=== PATIENT | male | born 1990 | race African-American/Black ===

== ENCOUNTER 2016-05-29 07:30 | Day surgery (SDC) | payer OTHER ==
[2016-05-29] MEDS ORDERED: ACETAMINOPHEN 1,000 MG/100 ML 100 ML IV ONE (08:21)
[2016-05-29] MEDS ORDERED: CELECOXIB 100 MG CAPSULE PO ONE (08:21)
[2016-05-29] MEDS ORDERED: ceFAZolin 2 GM/50 ML 50 ML IV ONE (08:22)
[2016-05-29] MEDS ORDERED: LACTATED RINGERS 1,000 ML IV ONE (08:24)
[2016-05-29] MEDS ORDERED: fentaNYL 250 MCG/5 ML VIAL IVP ONE (12:00)
[2016-05-29] MEDS ORDERED: ceFAZolin 2 GM/50 ML BAG IV ONE (12:00)
[2016-05-29] MEDS ORDERED: MIDAZOLAM 2 MG/2 ML VIAL IVP ONE (12:00)
[2016-05-29] MEDS ORDERED: HYDROmorphone 1 MG/ML SYRINGE IVP ONE (12:00)
[2016-05-29] MEDS ORDERED: BUPIVACAINE 0.5%-EPI 1:200000 PF 30 ML VIAL SUBQ ONE (12:00)
[2016-05-29] MEDS ORDERED: ONDANSETRON 4 MG/2 ML VIAL IVP ONE (12:00)
[2016-05-29] MEDS ORDERED: PROPOFOL 200 MG/20 ML VIAL IVP ONE (12:00)
[2016-05-29] MEDS ORDERED: LIDOCAINE-MPF 2% 5 ML VIAL IM ONE (12:00)
[2016-05-29] MEDS ORDERED: ACETAMINOPHEN 1,000 MG/100 ML VIAL IV ONE (12:00)
[2016-05-29] MEDS: fentaNYL 100 MCG/2 ML VIAL ONE ×4 (14:00→14:45)
[2016-05-29] MEDS ORDERED: oxyCOD/ACETAMIN 5 MG/325 MG TABLET PO ONE (15:38)
== END 2016-05-29 07:31 | disposition home or self-care (01) ==
PROC: 0SBC4ZZ Excision of Right Knee Joint, Percutaneous Endoscopic Approach (ICD-10-PCS; 2016-05-29)
PROC: 0SBC4ZZ Excision of Right Knee Joint, Percutaneous Endoscopic Approach (ICD-10-PCS; 2016-05-29)
PROC: 0MUN47Z Supplement Right Knee Bursa and Ligament with Autologous Tissue Substitute, Percutaneous Endoscopic Approach (ICD-10-PCS; principal; 2016-05-29 10:00)
DX: S83.411A Sprain of medial collateral ligament of right knee, initial encounter (principal); S83.211A Bucket-handle tear of medial meniscus, current injury, right knee, initial encounter; S83.511A Sprain of anterior cruciate ligament of right knee, initial encounter; W18.42XA Slipping, tripping and stumbling without falling due to stepping into hole or opening, initial encounter; Y92.137 Garden or yard on military base as the place of occurrence of the external cause; E66.9 Obesity, unspecified; Z68.32 Body mass index [BMI] 32.0-32.9, adult
CPT/HCPCS: 29880; 29888; 73560; A9270; C1713; J0131; J0690; J1170; J3010; J7120

== ENCOUNTER 2017-07-02 09:04 | Outpatient (CLI) | payer OTHER ==
--- NOTE | 2017-07-02 13:42 | MRI Report ---
EXAM: RIGHT KNEE MRI WITHOUT CONTRAST EXAM DATE: 07/02/2017 10:00 AM. CLINICAL HISTORY: Surgery May 2016. ACL reconstruction. MCL/LCL debridement. COMPARISON: MRI 01/23/2016. TECHNIQUE: Multiplanar, multisequence T1-weighted and fluid-sensitive sequences of the knee without c ontrast. Other: None. FINDINGS: Bones: ACL graft surgery is noted. There is fluid signal posterior to the screw in the tibial tunnel, apparent widening of the tunnel. There are no visible fractures or foci of marrow edema. There are s mall medial compartment osteophytes. Articular Cartilage: Minimal thinning of the hyaline cartilage of the medial compartment. Medial Meniscus: The free margin of the medial meniscus appears truncated, suggesting prior partial m edial meniscectomy. Lateral Meniscus: The lateral meniscus is intact. Cruciate Ligaments: The ACL graft is intact. The PCL appears normal. Collateral Ligaments: The medial collateral and lateral collateral ligamentous structures are intact. Tendons: The patellar tendon appears thickened, consistent with prior graft harvest. The quadriceps a nd popliteus tendons appear normal. Musculature: No edema or fatty atrophy. Other: There is a small joint effusion. No popliteal cyst. No loose bodies. The medial and lateral re tinacula are intact. The subcutaneous tissues and fat pads are unremarkable. IMPRESSION: 1. Probable cyst formation within the tibial tunnel which has widened. 2. Small joint effusion. 3. ACL graft is intact. 4. Prior partial medial meniscectomy. [facility] MUSCULOSKELET[facility]IOLOGY SECTION Referring Provider Line: [phone] SITE ID: [id number]
== END 2017-07-02 09:05 | disposition home or self-care (01) ==
LOC: DI 09:04
PROVIDERS: ATTEND Orthopaedic Surgery
DX: M25.561 Pain in right knee (principal); M25.461 Effusion, right knee

== ENCOUNTER 2018-01-02 17:10 | Emergency (ER) | payer OTHER ==
[2018-01-02 18:00] LABS: BASOPHILS # (AUTO) 0.1 10^3/uL (0.0-0.1); BASOPHILS % (AUTO) 1.3 %; EOSINOPHILS # (AUTO) 0.2 10^3/uL (0.0-0.7); EOSINOPHILS % (AUTO) 3.5 %; LYMPHOCYTES # (AUTO) 1.5 10^3/uL (1.5-3.5); LYMPHOCYTES % (AUTO) 23.8 %; MEAN CORPUSCULAR HEMOGLOBIN 32.3 pg (27.0-31.0); MEAN CORPUSCULAR HGB CONC 34.3 g/dL (32.0-36.0); MEAN CORPUSCULAR VOLUME 94.1 fL (80.0-94.0); MONOCYTES # (AUTO) 0.6 10^3/uL (0.0-1.0); MONOCYTES % (AUTO) 8.7 %; NEUTROPHILS # (AUTO) 4.1 10^3/uL (1.5-6.6); NEUTROPHILS % (AUTO) 62.7 %; PLT - PLATELET COUNT 236 10^3/uL (130-450); RED BLOOD COUNT 4.34 10^6/uL (4.70-6.10); RED CELL DISTRIBUTION WIDTH 12.1 % (12.0-15.0); WHITE BLOOD COUNT 6.5 x10^3/uL (4.8-10.8)
[2018-01-02 18:14] LABS: ALBUMIN 4.2 g/dL (3.2-5.5); ALBUMIN/GLOBULIN RATIO 1.4 (1.0-2.2); BILIRUBIN,TOTAL 0.9 mg/dL (0.2-1.0); CALCIUM 9.2 mg/dL (8.5-10.3); CREATININE 1.1 mg/dL (0.6-1.2); TOTAL PROTEIN 7.3 g/dL (6.7-8.2)
--- NOTE | 2018-01-02 18:59 | XRAY Report ---
Reason: chest pain Procedure Date: 01/02/2018 Accession Number: [id number] / [id number] Procedure: XR - Chest 1 View X-Ray CPT Code: 10307 FULL RESULT: EXAM: CHEST RADIOGRAPHY EXAM DATE: 01/02/2018 06:45 PM. CLINICAL HISTORY: Left side chest pain off and on for 3 weeks COMPARISON: None. TECHNIQUE: 1 view. FINDINGS: Lungs/Pleura: No focal opacities evident. No pleural effusion. No pneumothorax. Mediastinum: Within exam limitations, the cardiomediastinal contour is normal. IMPRESSION: No evidence of acute thoracic process [facility]
--- NOTE | 2018-01-02 19:03 | ED Physician Documentation ---
History of Present Illness - Stated complaint Stated Complaint: CHEST PX - Chief complaint Chief Complaint: Cardiac - History obtained from History obtained from: Patient - History of Present Illness Timing: Today Pain level max: 3 Pain level now: 3 Improved by: nothing Worsened by: nothing - Additonal information Additional information: Patient is a 27-year-old male who presents to the emergency department left- sided chest pain since approximately 10 AM this morning. Described as aching and squeezing. No dyspnea. No dyspnea on exertion. Nothing makes it better or worse. Has had intermittent symptoms similar to this for the past month. Has not seen his PCP for this. Does have a history of sleep apnea and states that sometimes he feels like he has trouble breathing when he is asleep. Review of Systems Ten Systems: 10 systems reviewed and negative Constitutional: denies: Fever, Chills Ears: denies: Ear pain Nose: denies: Rhinorrhea / runny nose, Congestion Throat: denies: Sore throat Cardiac: denies: Palpitations, Calf pain Respiratory: denies: Cough, Wheezing GI: denies: Abdominal Pain, Nausea, Vomiting, Diarrhea Skin: denies: Rash Musculoskeletal: denies: Neck pain, Back pain Neurologic: denies: Focal weakness, Numbness, Headache PD PAST MEDICAL HISTORY - Past Medical History Past Medical History: No Cardiovascular: None Respiratory: None Endocrine/Autoimmune: None GI: None : None HEENT: None Psych: None Musculoskeletal: Other Derm: None - Past Surgical History Past Surgical History: No General: Other - Present Medications Home Medications: Ambulatory Orders Medication Instructions Recorded Confirmed No Known Home Medications [No 04/23/16 05/29/16 Known Home Medications] - Allergies Allergies/Adverse Reactions: Allergies Allergy/AdvReac Type Severity Reaction Status Date / Time No Known Drug Allergies Allergy Verified 01/02/18 17:19 - Social History Does the pt smoke?: No Smoking Status: Never smoker Does the pt drink ETOH?: No Does the pt have substance abuse?: No - Immunizations Immunizations are current?: Yes - POLST Patient has POLST: No PD ED PE NORMAL - Vitals Vital signs reviewed: Yes - General General: Alert and oriented X 3, No acute distress - HEENT HEENT: PERRL, Moist mucous membranes - Neck Neck: Supple, no meningeal sign, No JVD, No bruit - Cardiac Cardiac: RRR, Strong equal pulses - Respiratory Respiratory: No respiratory distress, Clear bilaterally - Abdomen Abdomen: Soft, Non tender, Non distended - Back Back: No spinal TTP - Derm Derm: Normal color, Warm and dry, No rash - Extremities Extremities: No edema, No calf tenderness / cord - Neuro Neuro: Alert and oriented X 3 - Psych Psych: Normal mood, Normal affect Results - Vitals Vitals: Vital Signs - 24 hr 01/02/18 01/02/18 01/02/18 17:16 18:53 19:15 Temperature 36.2 C L 36.2 C L Heart Rate 75 72 70 Respiratory 20 12 14 Rate Blood Pressure 127/87 H 130/72 132/76 H O2 Saturation 99 99 99 Oxygen O2 Source Room air - EKG (time done) 1720 Rate: Rate (enter#) (64) Rhythm: NSR [place]: Normal Intervals: Normal [place] QRS: Normal Ischemia: Normal ST segments Computer interpretation: Agree with computer - Labs Labs: Laboratory Tests 01/02/18 01/02/18 01/02/18 17:53 17:53 17:53 WBC 6.5 RBC 4.34 L Hgb 14.0 Hct 40.9 L MCV 94.1 H MCH 32.3 H MCHC 34.3 RDW 12.1 Plt Count 236 MPV 9.0 Neut # (Auto) 4.1 Lymph # (Auto) 1.5 [place] # (Auto) 0.6 Eos # (Auto) 0.2 Baso # (Auto) 0.1 Absolute Nucleated RBC 0.01 Nucleated RBC % 0.1 D-Dimer Sodium 137 Potassium 3.8 Chloride 102 Carbon Dioxide 28 Anion Gap 7.0 BUN 20 Creatinine 1.1 Estimated GFR (MDRD) 97 Glucose 99 Calcium 9.2 Total Bilirubin 0.9 AST 39 ALT 58 Alkaline Phosphatase 62 Troponin I < 0.04 Total Protein 7.3 Albumin 4.2 Globulin 3.1 Albumin/Globulin Ratio 1.4 Lipase 41 01/02/18 17:53 WBC RBC Hgb Hct MCV MCH MCHC RDW Plt Count MPV Neut # (Auto) Lymph # (Auto) [place] # (Auto) Eos # (Auto) Baso # (Auto) Absolute Nucleated RBC Nucleated RBC % D-Dimer < 200.0 L Sodium Potassium Chloride Carbon Dioxide Anion Gap BUN Creatinine Estimated GFR (MDRD) Glucose Calcium Total Bilirubin AST ALT Alkaline Phosphatase Troponin I Total Protein Albumin Globulin Albumin/Globulin Ratio Lipase - Rads (name of study) cxr Radiology: Prelim report reviewed, EMP read contemporaneously, See rad report ( normal.) PD MEDICAL DECISION MAKING - ED course Complexity details: reviewed results, re-evaluated patient, considered differential (No ST elevation [place], no aortic dissection, no PE, no tension pneumothorax, no aortic aneurysm), d/w patient ED course: Patient is a 27-year-old male who presents with left-sided chest pain. Nonradiating. Normal EKG. Negative troponin after greater than 8 hours of symptoms. He actually has had intermittent symptoms over the past several weeks. His d-dimer is negative. No calf swelling or tenderness. Symptoms resolved while in the emergency department. We will continue supportive care and follow-up with his doctor. Patient counseled regarding signs and symptoms for which I believe and urgent re-evaluation would be necessary. Patient with good understanding of and agreement to plan and is comfortable going home at this time This document was made in part using voice recognition software. While efforts are made to proofread this document, sound alike and grammatical errors may occur. - Sepsis Event Vital Signs: Vital Signs - 24 hr 01/02/18 01/02/18 01/02/18 17:16 18:53 19:15 Temperature 36.2 C L 36.2 C L Heart Rate 75 72 70 Respiratory 20 12 14 Rate Blood Pressure 127/87 H 130/72 132/76 H O2 Saturation 99 99 99 Oxygen O2 Source Room air Departure - Departure Disposition: 01 Home, Self Care Clinical Impression: Atypical chest pain Condition: Good Instructions: ED Chest Pain Atypical Unkn Cause Follow-Up: your,doctor in 1 week [Other] Comments: Your tests are normal tonight including tests for blood clots in your lungs. Return if you worsen. Follow-up with your doctor for further care. Discharge Date/Time: 01/02/18 19:16
[2018-01-02 19:16] VITALS: BP 132/76
== END 2018-01-02 19:16 | disposition home or self-care (01) ==
LOC: ED 17:10
DX: R07.89 Other chest pain (principal)
CPT/HCPCS: 36415; 71045; 80053; 83690; 84484; 85025; 85379; 93005; 99283; 99284

== ENCOUNTER 2018-05-08 14:43 | Emergency (ER) | payer OTHER ==
[2018-05-08 14:54] VITALS: BP 132/60
--- NOTE | 2018-05-08 15:14 | ED Physician Documentation ---
PD HPI LOWER EXT INJURY - Stated complaint Stated Complaint: R KNEE PX - Chief complaint Chief Complaint: Ext Problem - History obtained from History obtained from: Patient - History of Present Illness PD HPI LOW EXT INJURY LOCATION: Right (He has a history of multiple surgeries to the right knee including ACL replacement. Over the last 2 weeks while traveling back and forth to [facility] he developed popliteal pain and he is worried about a DVT. There is no shortness of breath or chest pain. No recent trauma.) Review of Systems Constitutional: reports: Reviewed and negative Cardiac: denies: Chest pain / pressure, Palpitations Respiratory: denies: Dyspnea, Cough PD PAST MEDICAL HISTORY - Past Medical History Cardiovascular: None Respiratory: None Endocrine/Autoimmune: None GI: None : None HEENT: None Psych: None Musculoskeletal: Other Derm: None - Past Surgical History Past Surgical History: No General: Other - Present Medications Home Medications: Ambulatory Orders Medication Instructions Recorded Confirmed Ibuprofen [Ibuprofen Ib] 05/08/18 - Allergies Allergies/Adverse Reactions: Allergies Allergy/AdvReac Type Severity Reaction Status Date / Time No Known Drug Allergies Allergy Verified 05/08/18 14:53 - Social History Does the pt smoke?: No Smoking Status: Never smoker Does the pt drink ETOH?: No Does the pt have substance abuse?: No - Immunizations Immunizations are current?: Yes - POLST Patient has POLST: No PD ED PE NORMAL - Vitals Vital signs reviewed: Yes - General General: Alert and oriented X 3, No acute distress - Extremities Extremities: Other (Right knee does have a small effusion and well-healed surgical scars. ACL, PCL, LCL, MCL are intact he has negative grind testing and normal gait. There is no asymmetry of the calves and he has no calf tenderness.) - Neuro Neuro: Alert and oriented X 3, Normal speech Results - Vitals Vitals: Vital Signs - 24 hr 05/08/18 14:50 Temperature 36.6 C Heart Rate 83 Respiratory 18 Rate Blood Pressure 132/60 H O2 Saturation 99 Oxygen O2 Source Room air - Rads (name of study) RLE sono Radiology: Prelim report reviewed (no dvt) Departure - Departure Disposition: 01 Home, Self Care Clinical Impression: Effusion, right knee Pain of lower extremity Qualifiers: Laterality: right Qualified Code(s): M79.604 - Pain in right leg Clinical Impression: (Ruled Out): Deep vein thrombosis Condition: Good Record reviewed to determine appropriate education?: Yes Instructions: ED Effusion Knee Comments: Ibuprofen as needed for pain. [place]
--- NOTE | 2018-05-08 16:03 | Ultrasound Report ---
Reason: RLE pain Procedure Date: 05/08/2018 Accession Number: [id number] / [id number] Procedure: US - Duplex Ext Veins Right CPT Code: FULL RESULT: EXAM: RIGHT LOWER EXTREMITY VENOUS ULTRASOUND EXAM DATE: 05/08/2018 03:33 PM. CLINICAL HISTORY: RLE pain. COMPARISON: None. TECHNIQUE: Real-time sonographic vascular imaging was performed by the mohs surgeon/general dermatologist through the lower extremity utilizing both color-flow and Doppler spectral analysis. Multiple renewals representative static images were saved for review. FINDINGS: Common Femoral Vein (CFV): Normal. CFV-GSV Junction: Normal. Profunda Femoral Vein (PFV): Normal. Femoral Vein (FV) Prox: Normal. Femoral Vein (FV) Mid: Normal. Femoral Vein (FV) Dist: Normal. Popliteal Vein: Normal. Posterior Tibial Veins: Normal. Peroneal Veins: Normal. Other: None. IMPRESSION: No evidence for deep venous thrombosis in the right lower extremity. [facility]
== END 2018-05-08 16:05 | disposition home or self-care (01) ==
LOC: ED 14:43
DX: M25.461 Effusion, right knee (principal); M79.604 Pain in right leg
CPT/HCPCS: 99282; 99283